=== PATIENT | female | born 1990 | race Caucasian/White ===

== ENCOUNTER 2023-11-14 15:46 | Outpatient (AMB) | payer OTHER, SELFPAY ==
--- NOTE | 2023-11-14 15:55 | MHC.PC.OV ---
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 Required: No Candle Maker: Not Required per policy Accompanied by: Self / Same As Patient Allergies amoxicillin Adverse Reaction (Verified 11/14/23 16:13) Unknown Penicillins Adverse Reaction (Verified 11/14/23 16:13) Unknown Medication List - Last Reconciled 11/14/23 by Severo Lanier PA-C dextroamphetamine-amphetamine 30 mg (Adderall) 30 mg PO DAILY escitalopram oxalate 10 mg PO DAILY Tobacco use date assessed: 11/14/23 Dental Screening Dental Screen Date: 11/14/23 Did you have a dental visit in the last 12 months?: No Did you have a dental problem in the last 6 months where you did not have access to dental care?: No Was dental information given to patient?: Patient has dentist HPI 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 Patient has a past medical history significant for anxiety and ADHD. She reports she was seeing a psychiatrist though has lost her follow-up and would like to regain psychiatry care. She is on Lexapro which has been helpful for her anxiety. She was on Adderall 30 mg for ADHD though apparently has not been on it over the last year and half. She reports she was on several different ADHD medications as a young woman including Ritalin and Concerta though felt they were somewhat ineffective. 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 She does have a 12-year-old daughter. Tobacco dependency: She does understand she needs to quit smoking though at this time due to her stress it is very difficult for her to stop at this time. She does use cigarette smoking as a means to reduce her stress. [facility] Surgical History History of Social History (Updated 11/14/23 @ 16:19 by Severo Lanier PA-C) Housing: House Alcohol intake: current Alcohol intake frequency: a few times a week Patient Tobacco Use Status: Current everyday Tobacco user Cigarette Packs Per Day: 0.5 Substance Use Type: Marijuana Current occupational status: employed Current occupation: [employer] Cognitive needs: No Hearing needs: No Vision needs: No Questionnaire PHQ-9 Over the last 2 weeks, how often have you been bothered by any of the following problems? 1. Little interest or pleasure in doing things: not at all 2. Feeling down, depressed, or hopeless: not at all 3. Trouble falling or staying asleep, or sleeping too much: not at all 4. Feeling tired or having little energy: not at all 5. Poor appetite or overeating: not at all 6. Feeling bad about yourself - or that you are a failure or have let yourself or your family down: not at all 7. Trouble concentrating on things, such as reading the newspaper or watching television: not at all 8. Moving or speaking so slowly that other people could have noticed. Or the opposite - being so fidgety or restless that you have been moving around a lot more than usual: not at all 9. Thoughts that you would be better off or of hurting yourself in some way: not at all Total score: 0 Depression Screening Interpretation: Negative Depression Screening Done: Yes 02881 - PHQ-9 Billing: Yes Source: Developed by Drs. Yasir Mancia, Sanam Joyner, Norm Jason and colleagues, with an educational romulo from [employer]. Thrive Questionnaire Date Thrive assessed: 11/14/23 I am a: Patient What is your living situation today?: I have a steady place to live Within the past 12 months, did the food you bought not last and you didn't have the money to get more?: Never true Within the past 12 months, did you worry whether your food would run out before you got money to buy more?: Never true Do you have trouble paying for medicines?: No Do you have trouble getting transportation to medical appointments?: No Do you have trouble paying your heating and electricity bill?: No Do you have trouble taking care of your child, family member or friend?: No Do you have trouble with day-to-day activities such as bathing, preparing meals, shopping, managing finances, etc.?: No Are you currently unemployed and looking for a job?: No Are you interested in more education?: No Please select the resources that you would like help with: None THRIVE Score: 0 AUDIT C Alcohol Use Questionnaire (AUDIT-C) 1. How often do you have a drink containing alcohol?: Never Total Score: 0 OMAR-7 AMB Questionnaire OMAR-7 Date OMAR - 7 assessed: 11/14/23 Feeling nervous, anxious, or on edge: 3 = Nearly every day Not being able to stop or control worryin = More than half the days Worrying too much about different things: 3 = Nearly every day Trouble relaxin = More than half the days Being so restless that it is hard to sit still: 1 = Several days Becoming easily annoyed or irritable: 1 = Several days Feeling afraid as if something awful might happen: 0 = Not at all Total OMAR-7 score (0-4 normal; 5-9 mild; 10-14 moderate; 15-21 severe): 12 Source: Developed by Drs. Yasir Mancia, Sanam Joyner, Norm Jason and colleagues, with an educational romulo from [employer]. OMAR-7 Assessment Billing OMAR-7 Assessment Tool: OMAR-7 Assessment 63155 Physical exam (Primary Care) Vital Signs: Last Vital Signs Pulse 75 11/14/23 16:01 BP 140/82 H 11/14/23 16:01 Pulse Ox 100 11/14/23 16:01 Oxygen Delivery Method Room Air 11/14/23 16:01 BMI result Body Mass Index 27.0 Tobacco/Smoking Status: Tobacco use Status Tobacco use date assessed 11/14/23 11/14/23 15:57 Patient Tobacco Use Status Current everyday Tobacco 11/14/23 16:19 Are you ready to quit: No Tobacco cessation counseling provided: Yes Items discussed: Nicotine replacement Relapse Prevention: discussed the importance of a supportive environment, discussed negative mood or depression after quitting, weight gain after smoking is common and discussed dietary, exercise and/or lifestyle changes Number of minutes spent counselin CPT code: 61996 - 4-10 Minutes PHQ-9: PHQ-9 Score PHQ-9: Total score 0 11/14/23 16:20 Depression Screening Interpretation: Negative Thrive Assessment: Date of Thrive Assessment Date Thrive assessed 11/14/23 11/14/23 15:57 Assessment and Plan Assessment & Plan (1) ADHD: Code(s): F90.9 - Attention-deficit hyperactivity disorder, unspecified type Qualifiers: Attention deficit-hyperactivity disorder type: predominantly inattentive Qualified Code(s): F90.0 - Attention-deficit hyperactivity disorder, predominantly inattentive type Plan: As per HPI patient has a long history of ADHD disorder. She reports her previous provider was prescribing her Adderall 30 mg which had been effective for her on work days. She was previously on Ritalin and Concerta as a young woman though felt they were ineffective. We did discuss non stimulant non habit-forming ADHD medication and she is somewhat interested in transitioning to 1 of these in near future. (2) OMAR (generalized anxiety disorder): Code(s): F41.1 - Generalized anxiety disorder Plan: Patient's OMAR-7 score positive for anxiety which has been existing condition for her. She is interested in establishing care with a mental health therapist and a psychiatrist. Reports that Lexapro 10 mg is fairly effective on reducing her anxiety as well. (3) Screening for diabetes mellitus (DM): Code(s): Z13.1 - Encounter for screening for diabetes mellitus (4) Elevated blood pressure reading: Code(s): R03.0 - Elevated blood-pressure reading, without diagnosis of hypertension Plan: Noted elevated blood pressure reading today in office. Advised to monitor blood pressure at with goal blood pressure to be below 140/90. We did discuss the possibility of needing blood pressure medications though would like to monitor first. (5) Tobacco dependence: Code(s): F17.200 - Nicotine dependence, unspecified, uncomplicated Plan: Patient does understand she needs to quit smoking. Offered nicotine replacement therapy (6) Fatigue: Code(s): R53.83 - Other fatigue Qualifiers: Fatigue type: unspecified Qualified Code(s): R53.83 - Other fatigue Plan: Reports being somewhat fatigued as of late. She does have history of B12 deficiency per patient. Will recheck B12 and CBC. Orders: Orders Comprehensive [place]. Panel Fast 11/14/23 Z13.1 - Encounter for screening for diabetes mellitus Vitamin B12 and Folate 11/14/23 E53.8 - Deficiency of other specified B group vitamins, R53.83 - Other fatigue Complete Blood Count no Diff 11/14/23 R53.83 - Other fatigue Drug Screen Urine Today F90.0 - Attention-deficit hyperactivity disorder, predominantly inattentive type Ethanol Today F90.0 - Attention-deficit hyperactivity disorder, predominantly inattentive type Referrals Counseling Referral F41.1 - Generalized anxiety disorder Medications: New dextroamphetamine-amphetamine 30 mg (Adderall) 30 mg PO DAILY 28 tabs 0RF 28 days F90.0 - Attention-deficit hyperactivity disorder, predominantly inattentive type escitalopram oxalate 10 mg PO DAILY 90 tabs 1RF 90 days F41.1 - Generalized anxiety disorder dextroamphetamine-amphetamine 30 mg (Adderall) 30 mg PO DAILY 30 days 30 tabs 0RF F90.0 - Attention-deficit hyperactivity disorder, predominantly inattentive type Coding Level of Care Code New Pt Level 4 (08901) Diagnoses Attention deficit hyperactivity disorder (ADHD), predominantly inattentive type F90.0 Attention deficit-hyperactivity disorder type: predominantly inattentive OMAR (generalized anxiety disorder) F41.1 Screening for diabetes mellitus (DM) Z13.1 Elevated blood pressure reading R03.0 Tobacco dependence F17.200 Fatigue, unspecified type R53.83 Fatigue type: unspecified Additional Codes OMAR-7 Assessment Billing - OMAR-7 Assessment Tool: OMAR-7 Assessment [id number] ([id number]) Vital Signs *Quality* - CPT code: 71487 - 4-10 Minutes ([id number])
[2023-11-14 16:01] VITALS: BP 140/82; PULSE 75; O2SAT 100; BMI 27.0
== END 2023-11-14 16:36 | disposition home or self-care (01) ==
PROVIDERS: PCP Physician Assistant; Visit Provider Physician Assistant
DX: F90.0 Attention-deficit hyperactivity disorder, predominantly inattentive type (principal); F41.1 Generalized anxiety disorder; R03.0 Elevated blood-pressure reading, without diagnosis of hypertension; F17.210 Nicotine dependence, cigarettes, uncomplicated; R53.83 Other fatigue
CPT/HCPCS: 99204

== ENCOUNTER 2024-01-14 08:07 | Outpatient (REF) | payer OTHER, SELFPAY ==
[2024-01-14 08:23] LABS: Hematocrit 37.4 % (37.0-47.0); Hemoglobin 13.2 g/dl (12.0-16.0); Mean Corpuscular HGB Conc 35.3 g/dl (31.0-35.0); Mean Corpuscular Hemoglobin 32.8 pg (27.0-33.0); Mean Corpuscular Volume 92.8 fL (80.0-98.0); Mean Platelet Volume 9.5 fL (9.4-12.3); Platelet Count 295 X10*3/uL (160-400); Red Blood Count 4.03 X10*6/uL (4.20-5.50); Red Cell Distribution Width 12.8 % (11.0-16.0); White Blood Count 9.9 X10*3/uL (4.8-10.8)
[2024-01-14 09:01] LABS: Alanine Aminotransferase 59 U/L (0-31); Albumin Level 4.4 g/dL (3.5-5.0); Alkaline Phosphatase 58 U/L (39-117); Anion Gap 18 (12-20); Aspartate Amino Transferase 49 U/L (5-31); Bilirubin Total 0.3 mg/dL (0.0-1.0); Blood Urea Nitrogen 6 mg/dL (9-16); Calcium 10.3 mg/dL (8.4-10.2); Carbon Dioxide 23 mmol/L (22-29); Chloride 101 mmol/L (96-108); Estimated Glomerular Filt Rate > 60; Ethanol < 10 mg/dL; Glucose Fasting 114 mg/dL (60-99); Potassium 4.5 mmol/L (3.3-5.1); Sodium 137 mmol/L (135-145); Total Protein 7.5 g/dL (6.5-8.0)
[2024-01-14 09:17] LABS: Folate 2.8 ng/mL (> or = 4.0); Vitamin B12 353 pg/mL (200-900)
[2024-01-14 09:19] LABS: Amphetamine Screen Urine POSITIVE (Not Detect); Barbiturates, Urine Not Detected (Not Detect); Benzodiazepines Screen Urine Not Detected (Not Detect); Buprenorphine Scr Not Detected (Not Detect); Cannabinoid Screen Urine POSITIVE (Not Detect); Cocaine Screen Urine Not Detected (Not Detect); Fentanyl, urine Not Detected (Not Detect); Methadone Screen, Urine Not Detected (Not Detect); Opiate Screen Urine Not Detected (Not Detect); Oxycodone Screen Urine Not Detected (Not Detect); Phencyclidine Screen Urine Not Detected (Not Detect)
== END 2024-01-14 08:08 | disposition home or self-care (01) ==
LOC: HO.LAB 08:07
PROVIDERS: PCP Physician Assistant; Visit Provider Physician Assistant
DX: Z13.1 Encounter for screening for diabetes mellitus (principal); R53.83 Other fatigue; F90.0 Attention-deficit hyperactivity disorder, predominantly inattentive type; E53.8 Deficiency of other specified B group vitamins
CPT/HCPCS: 80053; 80307; 82607; 82746; 85027

== ENCOUNTER 2024-01-16 14:20 | Outpatient (AMB) | payer OTHER, SELFPAY ==
[2024-01-16 14:50] VITALS: BP 146/82; PULSE 110; O2SAT 99; BMI 26.6
--- NOTE | 2024-01-16 14:50 | A.OFFPC_ITS ---
Vital Signs 01/16/24 14:50 Height 5 ft 5 in Weight 160 lb 2 oz BMI 26.6 BP 146/82 H Blood Pressure Location Lt brachial Position Sitting Pulse 110 H Pulse Source Pulse Oximeter Pulse Oximetry (%) 99 Oxygen Delivery Method Room Air Intake Visit Reasons: Annual exam Intake Note: Patient is here today for a physical. Dope Sprayer Required: No Accompanied by: Self / Same As Patient Allergies amoxicillin Adverse Reaction (Verified 01/16/24 15:14) Unknown Penicillins Adverse Reaction (Verified 01/16/24 15:14) Unknown Medication List - Last Reconciled 01/16/24 by Severo Lanier PA-C dextroamphetamine-amphetamine 30 mg (Adderall) 30 mg PO DAILY 28 days escitalopram oxalate 10 mg PO DAILY 90 days Tobacco use date assessed: 11/14/23 Dental Screening Dental Screen Date: 11/14/23 HPI Annual exam HPI Details Patient is a 33-year-old female here today for a routine annual physical. Patient has a past medical history significant for anxiety and ADHD. ADHD: She reports she was seeing a psychiatrist though has lost her follow-up and would like to regain psychiatry care. She is on Lexapro which has been helpful for her anxiety. She was on Adderall 30 mg for ADHD though apparently has not been on it over the last year and half. She reports she was on several different ADHD medications as a young woman including Ritalin and Concerta though felt they were somewhat ineffective. 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 She does have a 12-year-old daughter. Tobacco dependency: She does understand she needs to quit smoking though at this time due to her stress it is very difficult for her to stop at this time. She does use cigarette smoking as a means to reduce her stress. .. Elevated liver enzymes: Noted elevated liver enzymes on most recent labs. She does report drinking a little bit more alcohol as of late due to stress. We did discuss possibly getting an ultrasound of her liver to evaluate for fatty liver versus cirrhosis though patient would like to hold off and work on lifestyle modifications and recheck liver enzymes. .. Impaired glucose metabolism: Most recent fasting blood sugar elevated at 114. She does admit to dietary indiscretion. PLAN: Will work on dietary and lifestyle modifications. Vaccines:: Up-to-date with COVID vaccine, declines flu, UTD with tdap 2022. Considering PCV Risk Reduction Counselor: Deos see a DIGITAL CAMERA TECHNICIAN ( [place]) Laboratory Tests 01/14/24 01/14/24 08:16 08:26 Creatinine 0.69 Fasting Glucose 114 H AST 49 H ALT 59 H Folate 2.8 L Ur Amphetamines Sc reen POSITIVE H U Marijuana (THC) Screen POSITIVE H PFSH Surgical History History of Family History Mother Hypothyroid Social History Housing: House Alcohol intake: current Alcohol intake frequency: a few times a week Patient Tobacco Use Status: Current everyday Tobacco user Cigarette Packs Per Day: 0.5 Substance Use Type: Marijuana Current occupational status: employed Current occupation: [employer] Cognitive needs: No Hearing needs: No Vision needs: No Questionnaire Thrive Questionnaire Date Thrive assessed: 11/14/23 OMAR-7 AMB Questionnaire OMAR-7 Date OMAR - 7 assessed: 11/14/23 Source: Developed by Drs. Yasir Mancia, Sanam Joyner, Norm Jason and colleagues, with an educational romulo from [employer]. Review of Systems Const Denies body aches, Denies chills, Denies excessive sweating, Denies fatigue, De nies fever(s) and Denies headache(s) Eyes Denies blurry vision ENT Denies dysphagia, Denies vertigo, Denies dizziness, Denies headache(s), Denies hearing loss and Denies tinnitus Card Denies chest pain, Denies chest pain with activity, Denies syncope, Denies irregular heart rhythm and Denies dyspnea Resp Denies chest congestion, Denies cough, Denies hemoptysis, Denies dyspnea and Denies wheezing GI Denies abdominal pain, Denies melena, Denies hematochezia, Denies coffee ground emesis, Denies dysphagia, Denies diarrhea, Denies nausea and Denies vomiting Denies urinary frequency, Denies dysuria, Denies urinary hesitancy and Denies urinary urgency Musc Denies arthralgias, Denies limited range of motion, Denies muscle cramps and Denies muscle weakness Skin/Breast Denies rash and Denies skin ulcer Neuro Denies Abnormal speech present, Denies confusion, Denies vertigo, Denies dizziness, Denies syncope, Denies headache(s), Denies memory loss and Denies seizure-like activity Psych Denies anxiety, Denies confusion, Denies depression, Denies memory loss, Denies panic attacks and Denies paranoia Endo Denies excessive sweating, Denies fatigue, Denies flushing, Denies polydipsia and Denies polyuria Aller/Immun Denies wheezing Physical exam (Primary Care) Vital Signs: Last Vital Signs Pulse 110 H 01/16/24 14:50 BP 146/82 H 01/16/24 14:50 Pulse Ox 99 01/16/24 14:50 Oxygen Delivery Method Room Air 01/16/24 14:50 BMI result Body Mass Index 26.6 Tobacco/Smoking Status: Tobacco use Status Tobacco use date assessed 11/14/23 01/16/24 14:50 Patient Tobacco Use Status Current everyday Tobacco 01/16/24 15:19 Are you ready to quit: No Tobacco cessation counseling provided: Yes Items discussed: Nicotine replacement and [employer] Relapse Prevention: discussed the importance of a supportive environment, discussed negative mood or depression after quitting, weight gain after smoking is common and discussed dietary, exercise and/or lifestyle changes Number of minutes spent counselin CPT code: 46465 - 4-10 Minutes Thrive Assessment: Date of Thrive Assessment Date Thrive assessed 11/14/23 01/16/24 14:50 Const General: cooperative, comfortable, no acute distress, alert and awake; No confusion Orientation/consciousness: oriented to person, oriented to place, patient oriented x3 and No confusion HENMT Head: Yes normocephalic Ears: external ears normal and TM's normal bilaterally Face and sinus: No sinus tenderness Mouth: Normal oral and palatal mucosa present and tongue normal Teeth and gingiva: dentition normal and gingiva normal Throat: Yes posterior oropharynx normal, Yes tonsils normal and Yes uvula midline Eyes Conjunctivae: conjunctivae normal Sclerae: sclerae normal Pupils: Equal, round and reactive pupils present EOM: EOMs intact bilaterally Direct Ophthalmoscopy: No no photophobia Neck Neck: Yes no lymphadenopathy, No tender and Yes no JVD Thyroid: Thyroid normal Carotids: no bruits Chest Chest palpation & inspection: no tenderness Resp Effort & Inspection: normal respiratory effort, no audible wheezes, not labored and no stridor Auscultation: no crackles, no rales, no rhonchi and no wheezes Cardio Jugular venous distension: no JVD Rate: regular rate, not bradycardic and not tachycardic Rhythm: regular rhythm Bruits: no carotid bruits Peripheral pulses: Peripheral pulses 2+ throughout GI Inspection: Yes normal to inspection, No abdominal wall ecchymosis and No visible herniation Palpation (GI): Soft to palpation, nontender, no guarding, not rigid and No hepatosplenomegaly present Auscultation: normoactive bowel sounds General: Yes no CVA tenderness Back/Spine/Pelvis Back: no CVA tenderness and No back tenderness Cervical Spine: cervical ROM normal Thoracic/Lumbar Spine: thoracic and lumbar spine normal to inspection, straight leg raise negative bilaterally, No thoraco-lumbar ROM limited and No lumbar spinal tenderness Skin Lesions: no lesions Rashes: no rashes Wounds: no wounds Neuro General: oriented to person, oriented to place, patient oriented x3, CN's II-XI intact bilaterally and No confusion Cranial nerves: Yes Equal, round and reactive pupils present and Yes Normal accommodation reflex present Cognition (Neuro): normal cognition Speech: No Abnormal speech present Gait exam (Neuro): Normal gait present Motor exam (neuro): 5/5 motor strength present throughout Extrem Right upper extremity: full ROM; no cyanosis Left upper extremity: full ROM; no cyanosis Right lower extremity: no edema Left lower extremity: no edema Psych Appearance: grossly normal Mental Status: mental status grossly normal Affect: normal affect Attitude: cooperative Thought process: Normal thought process present Assessment and Plan Assessment & Plan (1) Annual physical exam: Code(s): Z00.00 - Encounter for general adult medical examination without abnormal find ings (2) ADHD: Code(s): F90.9 - Attention-deficit hyperactivity disorder, unspecified type Qualifiers: Attention deficit-hyperactivity disorder type: predominantly inattentive Qualified Code(s): F90.0 - Attention-deficit hyperactivity disorder, predominantly inattentive type Plan: As per HPI patient has a long history of ADHD disorder. She reports her previous provider was prescribing her Adderall 30 mg which had been effective for her on work days. 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 She was previously on Ritalin and Concerta as a young woman though felt they were ineffective. We did discuss non stimulant non habit-forming ADHD medication and she is somewhat interested in transitioning to 1 of these in near future. (3) Elevated blood pressure reading: Code(s): R03.0 - Elevated blood-pressure reading, without diagnosis of hypertension Plan: Noted elevated blood pressure reading today in office. Advised to monitor blood pressure at with goal blood pressure to be below 140/90. We did discuss the possibility of needing blood pressure medications though would like to monitor first. (4) Tobacco dependence: Code(s): F17.200 - Nicotine dependence, unspecified, uncomplicated Plan: Patient does understand she needs to quit smoking. Offered nicotine replacement therapy though she declines at this time. Still is using cigarettes as a stress reliever. (5) Fatigue: Code(s): R53.83 - Other fatigue Qualifiers: Fatigue type: unspecified Qualified Code(s): R53.83 - Other fatigue Plan: Noted to have a folate deficiency. Will start folic acid supplementation. (6) Allergic arthritis: Code(s): M13.80 - Other specified arthritis, unspecified site Plan: Has been suffering with allergy type symptoms. Will supply patient with an antihistamine to use on a daily basis during allergy seasons. (7) Elevated liver enzymes: Code(s): R74.8 - Abnormal levels of other serum enzymes Plan: Noted elevated liver enzymes most recent labs. We did discuss possibly getting a ultrasound of liver to evaluate for fatty liver. She does admit to increase in alcohol intake as of late due to stress. She will work on lifestyle and dietary modifications (8) Folate deficiency: Code(s): E53.8 - Deficiency of other specified B group vitamins Plan: Noted a folate deficiency on most recent labs. Will start folic acid replacement. (9) Impaired glucose metabolism: Code(s): R73.09 - Other abnormal glucose Plan: Noted most recent fasting blood sugar 114. She does understand this may be considered in a prediabetic range. She work will work on dietary modifications. Goal fasting blood sugar to be below 100 Orders: Orders Vitamin B12 and Folate 01/16/24 E53.8 - Deficiency of other specified B group vitamins Hemoglobin A1c 01/16/24 R73.09 - Other abnormal glucose Comprehensive [facility]. Panel Fast 01/16/24 R73.09 - Other abnormal glucose Liver Panel 01/16/24 R74.8 - Abnormal levels of other serum enzymes Referrals Counseling Referral F41.1 - Generalized anxiety disorder Medications: New loratadine (Allergy Relief (loratadine)) 10 mg PO DAILY 30 tabs 3RF 30 days M13.80 - Other specified arthritis, unspecified site fluticasone propionate 50 mcg/actuation (Flonase Allergy Relief) administer into each nostril 1 spray intranasal BID 16 grams 3RF 30 days M13.80 - Other specified arthritis, unspecified site folic acid 1 mg PO DAILY 90 tabs 1RF 90 days E53.8 - Deficiency of other specified B group vitamins Refilled dextroamphetamine-amphetamine 30 mg (Adderall) 30 mg PO DAILY 28 tabs 0RF 28 days F90.0 - Attention-deficit hyperactivity disorder, predominantly inattentive type escitalopram oxalate 10 mg PO DAILY 90 tabs 1RF 90 days F41.1 - Generalized anxiety disorder Patient Instructions: Goal: Fasting blood sugar to be below 100 Barriers: Adherence to healthy eating habits and physical activity Coding Level of Care Code Est Pt Prev Care 18-39y(21247) Diagnoses Annual physical exam Z00.00 Attention deficit hyperactivity disorder (ADHD), predominantly inattentive type F90.0 Attention deficit-hyperactivity disorder type: predominantly inattentive Elevated blood pressure reading R03.0 Tobacco dependence F17.200 Fatigue, unspecified type R53.83 Fatigue type: unspecified Allergic arthritis M13.80 Elevated liver enzymes R74.8 Folate deficiency E53.8 Impaired glucose metabolism R73.09 Additional Codes Vital Signs *Quality* - CPT code: 22636 - 4-10 Minutes ([id number])
== END 2024-01-16 15:42 | disposition home or self-care (01) ==
PROVIDERS: PCP Physician Assistant; Visit Provider Physician Assistant
DX: Z00.00 Encounter for general adult medical examination without abnormal findings (principal); F90.0 Attention-deficit hyperactivity disorder, predominantly inattentive type; R03.0 Elevated blood-pressure reading, without diagnosis of hypertension; F17.200 Nicotine dependence, unspecified, uncomplicated; R53.83 Other fatigue; M13.80 Other specified arthritis, unspecified site; R74.8 Abnormal levels of other serum enzymes; E53.8 Deficiency of other specified B group vitamins; R73.09 Other abnormal glucose
CPT/HCPCS: 99395; 99406

== ENCOUNTER 2024-07-24 13:48 | Outpatient (AMB) | payer OTHER, SELFPAY ==
--- NOTE | 2024-07-24 13:56 | MHC.PC.OV ---
Vital Signs 07/24/24 13:57 Height 5 ft 5 in Weight 158 lb 6 oz BMI 26.4 BP 144/98 H Blood Pressure Location Lt brachial Position Sitting Pulse 106 H Pulse Source Pulse Oximeter Pulse Oximetry (%) 99 Oxygen Delivery Method Room Air Intake Visit Reasons: f/u Labs (liver / folate) Allergies amoxicillin Adverse Reaction (Verified 07/24/24 14:00) Unknown Penicillins Adverse Reaction (Verified 07/24/24 14:00) Unknown Medication List - Last Reconciled 07/24/24 by Severo Lanier PA-C dextroamphetamine-amphetamine 30 mg (Adderall) 30 mg PO DAILY 28 days escitalopram oxalate 10 mg PO DAILY 90 days fluticasone propionate 50 mcg/actuation (Flonase Allergy Relief) 1 spray intranasal BID 30 days folic acid 1 mg PO DAILY 90 days loratadine (Allergy Relief (loratadine)) 10 mg PO DAILY 30 days Tobacco use date assessed: 11/14/23 Dental Screening Dental Screen Date: 11/14/23 HPI f/u Labs (liver / folate) HPI Details Patient is a 33-year-old female here today for a follow-up visit. Patient has a past medical history significant for anxiety and ADHD. ADHD: She reports she was seeing a psychiatrist though has lost her follow-up and would like to regain psychiatry care. She is on Lexapro which has been helpful for her anxiety. She was on Adderall 30 mg for ADHD though apparently has not been on it over the last year and half. She reports she was on several different ADHD medications as a young woman including Ritalin and Concerta though felt they were somewhat ineffective. 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 She does have a 12-year-old daughter. Concern--> patient presenting with persistent watery eyes, primarily related to allergic conjunctivitis, which has worsened this season. She has been experiencing this on and off for a long time. Despite using loratadine occasionally, symptoms persist, possibly exacerbated by prolonged screen time due to work-related changes. Tobacco dependency: She does understand she needs to quit smoking though at this time due to her stress it is very difficult for her to stop at this time. She does use cigarette smoking as a means to reduce her stress. .. Elevated liver enzymes: Noted elevated liver enzymes on most recent labs. She does report drinking a little bit more alcohol as of late due to stress. We did discuss possibly getting an ultrasound of her liver to evaluate for fatty liver versus cirrhosis though patient would like to hold off and work on lifestyle modifications and recheck liver enzymes. .. Impaired glucose metabolism: Most recent fasting blood sugar elevated at 114. She does admit to dietary indiscretion. PLAN: Will check an A1c Laboratory Tests 01/14/24 01/14/24 08:16 08:26 AST 49 H ALT 59 H Folate 2.8 L Ur Amphetamines Sc reen POSITIVE H U Marijuana (THC) Screen POSITIVE H PFSH Surgical History History of Family History Mother Hypothyroid Social History Housing: House Alcohol intake: current Alcohol intake frequency: a few times a week Patient Tobacco Use Status: Current everyday Tobacco user Cigarette Packs Per Day: 0.5 Substance Use Type: Marijuana Current occupational status: employed Current occupation: [employer] Cognitive needs: No Hearing needs: No Vision needs: No Questionnaire Thrive Questionnaire Date Thrive assessed: 11/14/23 OMAR-7 AMB Questionnaire OMAR-7 Date OMAR - 7 assessed: 11/14/23 Source: Developed by Drs. Yasir Mancia, Sanam Joyner, Norm Jason and colleagues, with an educational romulo from [employer]. Review of Systems Const Denies headache(s) Eyes Denies loss of vision ENT Denies vertigo, Denies dizziness, Denies headache(s) and Denies sore throat Card Denies chest pain, Denies leg edema and Denies lightheadedness Resp Denies cough, Denies hemoptysis and Denies wheezing GI Denies abdominal pain, Denies melena, Denies constipation, Denies diarrhea and Denies vomiting Denies urinary frequency, Denies dysuria and Denies urinary urgency Musc Denies arthralgias, Denies joint swelling, Denies numbness and Denies tingling Neuro Denies Abnormal speech present, Denies behavioral changes, Denies vertigo, Denies dizziness, Denies headache(s), Denies loss of vision, Denies memory loss, Denies numbness and Denies tingling Psych Denies anxiety, Denies behavioral changes, Denies depression, Denies memory loss and Denies panic attacks Rell/Lymph Denies easy bleeding and Denies easy bruising Aller/Immun Denies wheezing Physical exam (Primary Care) Vital Signs: Last Vital Signs Pulse 106 H 07/24/24 13:57 BP 144/98 H 07/24/24 13:57 Pulse Ox 99 07/24/24 13:57 Oxygen Delivery Method Room Air 07/24/24 13:57 BMI result Body Mass Index 26.4 Tobacco/Smoking Status: Tobacco use Status Tobacco use date assessed 11/14/23 07/24/24 13:57 Patient Tobacco Use Status Current everyday Tobacco 07/24/24 13:57 Thrive Assessment: Date of Thrive Assessment Date Thrive assessed 11/14/23 07/24/24 13:57 Const General: healthy appearing, no acute distress, alert and awake Nutritional Appearance: well nourished Orientation/consciousness: oriented to person, oriented to place and oriented to time HENMT Ears: TM's normal bilaterally General nose exam: Normal nasal mucous membranes and turbinates present Eyes Conjunctivae: conjunctivae normal Sclerae: sclerae normal Pupils: Equal, round and reactive pupils present Neck Neck: Yes no lymphadenopathy and Yes no JVD Thyroid: Thyroid normal Carotids: no bruits Resp Effort & Inspection: normal respiratory effort and not tachypneic Auscultation: no crackles, no rales, no rhonchi and no wheezes Cardio Rate: regular rate Rhythm: regular rhythm Heart sounds: no murmurs and normal S1 and S2 GI Palpation (GI): Soft to palpation, nontender, no hepatomegaly and no splenomegaly Auscultation: normal bowel sounds Skin General skin exam: no rashes or lesions noted and dry skin Neuro General: oriented to person, oriented to place and oriented to time Cranial nerves: Yes Equal, round and reactive pupils present Speech: No Abnormal speech present Gait exam (Neuro): Normal gait present Motor exam (neuro): no tremor noted Extrem Right upper extremity: full ROM Left upper extremity: full ROM Right lower extremity: full ROM; no edema Left lower extremity: full ROM; no edema Psych Mental Status: mental status grossly normal Speech and movement: Normal speech and movement present Affect: normal affect Attitude: cooperative Thought process: Normal thought process present Office Procedures Flu Questionnaire Does the patient have a severe egg allergy?: No Immunizations Fluarix Triv [id number] (PF) 45 mcg (15 mcg x 3)/0.5 mL IM syringe Performing Provider: Severo Lanier PA-C [facility] Documented (not given) by: ARIAN Messer on 07/24/24 13:58 Reason Not Given: Patient Refused Coding Level of Care Code Est Pt Level 4 (30082) Diagnoses Attention deficit hyperactivity disorder (ADHD), predominantly inattentive type F90.0 Attention deficit-hyperactivity disorder type: predominantly inattentive Impaired glucose metabolism R73.09 Folate deficiency E53.8 Tobacco dependence F17.200 Allergic conjunctivitis of both eyes H10.13 Laterality: bilateral Assessment & Plan Assessment & Plan (1) ADHD: Code(s): F90.9 - Attention-deficit hyperactivity disorder, unspecified type Category: Medical Qualifiers: Attention deficit-hyperactivity disorder type: predominantly inattentive Qualified Code(s): F90.0 - Attention-deficit hyperactivity disorder, predominantly inattentive type Plan: Patient seems to have been doing well on current dose of stimulant ADHD medication. She continues with a full-time job . She denies any side effects from stimulant ADHD med. Will continue to follow every 3 months to evaluate the effectiveness of the medication. (2) Impaired glucose metabolism: Code(s): R73.09 - Other abnormal glucose Category: Medical Plan: Patient's most recent fasting blood sugar slightly elevated. She has been trying to work on lifestyle and dietary modifications. Will recheck fasting blood sugar and A1c. (3) Folate deficiency: Code(s): E53.8 - Deficiency of other specified B group vitamins Category: Medical Plan: Will continue folate supplementation. (4) Tobacco dependence: Code(s): F17.200 - Nicotine dependence, unspecified, uncomplicated Category: Medical Plan: Patient does understand she needs to quit smoking. She would like to try nicotine gum. (5) Allergic conjunctivitis: Code(s): H10.10 - Acute atopic conjunctivitis, unspecified eye Category: Medical Qualifiers: Laterality: bilateral Qualified Code(s): H10.13 - Acute atopic conjunctivitis, bilateral Plan: Use [id number] antihistamine or vasoconstrictant eye drops for allergy-related eye symptoms Orders: Orders Influenza [id number] Immunization 07/24/24 Z23 - Encounter for immunization Medications: New nicotine (polacrilex) 2 mg buccal Q2H PRN 110 ea 0RF nicotine cravings 15 days F17.200 - Nicotine dependence, unspecified, uncomplicated Refilled folic acid 1 mg PO DAILY 90 tabs 1RF 90 days E53.8 - Deficiency of other specified B group vitamins
[2024-07-24 13:57] VITALS: BP 144/98; PULSE 106; O2SAT 99; BMI 26.4
== END 2024-07-24 14:19 | disposition home or self-care (01) ==
PROVIDERS: PCP Physician Assistant; Visit Provider Physician Assistant
DX: F90.0 Attention-deficit hyperactivity disorder, predominantly inattentive type (principal); R73.09 Other abnormal glucose; E53.8 Deficiency of other specified B group vitamins; F17.200 Nicotine dependence, unspecified, uncomplicated; H10.13 Acute atopic conjunctivitis, bilateral

== ENCOUNTER → 2024-07-24 13:48 | Outpatient (BNVA) | payer OTHER, SELFPAY | PROVIDERS: PCP Physician Assistant; Visit Provider Physician Assistant | DX: F90.0 Attention-deficit hyperactivity disorder, predominantly inattentive type (principal); R73.09 Other abnormal glucose; E53.8 Deficiency of other specified B group vitamins; F17.200 Nicotine dependence, unspecified, uncomplicated; H10.13 Acute atopic conjunctivitis, bilateral; Z28.21 Immunization not carried out because of patient refusal | CPT/HCPCS: 90471 ==

== ENCOUNTER 2024-11-27 13:30 | Outpatient (AMB) | payer OTHER, SELFPAY ==
[2024-11-27 13:55] VITALS: BP 150/94; PULSE 104; O2SAT 97; BMI 26.5
--- NOTE | 2024-11-27 13:55 | A.OFFPC_ITS ---
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 Accompanied by: Self / Same As Patient Allergies amoxicillin Adverse Reaction (Verified 11/27/24 14:12) Unknown Penicillins Adverse Reaction (Verified 11/27/24 14:12) Unknown Medication List - Last Reconciled 11/27/24 by Severo Lanier PA-C dextroamphetamine-amphetamine 30 mg (Adderall) 30 mg PO DAILY 28 days escitalopram oxalate 10 mg PO DAILY 90 days fluticasone propionate 50 mcg/actuation (Flonase Allergy Relief) 1 spray intranasal BID 30 days folic acid 1 mg PO DAILY 90 days loratadine (Allergy Relief (loratadine)) 10 mg PO DAILY 30 days nicotine (polacrilex) 2 mg buccal Q2H PRN 15 days Tobacco use date assessed: 11/27/24 Dental Screening Dental Screen Date: 11/27/24 Did you have a dental visit in the last 12 months?: Yes Did you have a dental problem in the last 6 months where you did not have access to dental care?: No Was dental information given to patient?: Patient has dentist HPI f/u ADHD/ blood pressure chesck HPI Details Patient is a 34-year-old female here today for a follow-up visit. Patient has a past medical history significant for anxiety and ADHD. Concern--> reports getting cystic masses in her groin and axillary region. She was told she had hidradenitis in the past. She would like to try a topical treatment when cysts present. ADHD: She reports she was seeing a psychiatrist though has lost her follow-up an d would like to regain psychiatry care. She is on Lexapro which has been helpful for her anxiety. She was on Adderall 30 mg for ADHD though apparently has not been on it over the last year and half. She reports she was on several different ADHD medications as a young woman including Ritalin and Concerta though felt they were somewhat ineffective. 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 She does have a 12-year-old daughter. Tobacco dependency: She does understand she needs to quit smoking though at this time due to her stress it is very difficult for her to stop at this time. She does use cigarette smoking as a means to reduce her stress. /.. Hypertension: consistent elevated blood pressure. Despite the initiation of an exercise regimen and attempts to modify diet by reducing salt intake, blood pressure readings have not dropped below 140/90 mmHg. Past blood pressure readings were stable, with slight elevations only noted during her recent ; no previous hypertensive diagnosis was recorded. She's also dealing with stress at work, compounded by smoking and caffeine consumption, which might contribute to the blood pressure issue. .. Elevated liver enzymes: Noted elevated liver enzymes on most recent labs. She does report drinking a little bit more alcohol as of late due to stress. We did discuss possibly getting an ultrasound of her liver to evaluate for fatty liver versus cirrhosis though patient would like to hold off and work on lifestyle modifications and recheck liver enzymes. .. Impaired glucose metabolism: Most recent fasting blood sugar elevated at 114. She does admit to dietary indiscretion. PLAN: Will check an A1c upon next lab draw [facility] Surgical History History of Family History Mother Hypothyroid Social History Housing: House Alcohol intake: current Alcohol intake frequency: a few times a week Patient Tobacco Use Status: Current everyday Tobacco user Cigarette Packs Per Day: 0.5 e-Cigarette/Vaping Use: Never Used Substance Use Type: Marijuana service: No Current occupational status: employed Current occupation: [employer] Cognitive needs: No Hearing needs: No Vision needs: No Questionnaire PHQ-9 Over the last 2 weeks, how often have you been bothered by any of the following problems? 1. Little interest or pleasure in doing things: not at all 2. Feeling down, depressed, or hopeless: not at all 3. Trouble falling or staying asleep, or sleeping too much: not at all 4. Feeling tired or having little energy: not at all 5. Poor appetite or overeating: not at all 6. Feeling bad about yourself - or that you are a failure or have let yourself or your family down: not at all 7. Trouble concentrating on things, such as reading the newspaper or watching television: not at all 8. Moving or speaking so slowly that other people could have noticed. Or the opposite - being so fidgety or restless that you have been moving around a lot more than usual: not at all 9. Thoughts that you would be better off or of hurting yourself in some way: not at all Total score: 0 Depression Screening Interpretation: Negative Depression Screening Done: Yes 47913 - PHQ-9 Billing: Yes Source: Developed by Drs. Yasir Mancia, Sanam Joyner, Norm Jason and colleagues, with an educational romulo from [employer]. Thrive Questionnaire Date Thrive assessed: 11/27/24 I am a: Patient What is your living situation today?: I have a steady place to live Within the past 12 months, did the food you bought not last and you didn't have the money to get more?: Never true Within the past 12 months, did you worry whether your food would run out before you got money to buy more?: Never true Do you have trouble paying for medicines?: No Do you have trouble getting transportation to medical appointments?: No Do you have trouble paying your heating and electricity bill?: No Do you have trouble taking care of your child, family member or friend?: No Do you have trouble with day-to-day activities such as bathing, preparing meals, shopping, managing finances, etc.?: No Are you currently unemployed and looking for a job?: No Are you interested in more education?: No Please select the resources that you would like help with: None Currently or been in a relationship where the following occur: No concerns reported THRIVE Score: 0 AUDIT C Alcohol Use Questionnaire (AUDIT-C) 1. How often do you have a drink containing alcohol?: Never 3. How often do you have six or more drinks on one occasion?: Never Total Score: 0 OMAR-7 AMB Questionnaire OMAR-7 Date OMAR - 7 assessed: 11/14/23 Source: Developed by Drs. Yasir Mancia, Norm Garcia and colleagues, with an educational romulo from [employer]. Review of Systems Const Denies headache(s) Eyes Denies loss of vision ENT Denies vertigo, Denies dizziness, Denies headache(s) and Denies sore throat Card Denies chest pain, Denies leg edema and Denies lightheadedness Resp Denies cough, Denies hemoptysis and Denies wheezing GI Denies abdominal pain, Denies melena, Denies constipation, Denies diarrhea and Denies vomiting Denies urinary frequency, Denies dysuria and Denies urinary urgency Musc Denies arthralgias, Denies joint swelling, Denies numbness and Denies tingling Neuro Denies Abnormal speech present, Denies behavioral changes, Denies vertigo, Denies dizziness, Denies headache(s), Denies loss of vision, Denies memory loss, Denies numbness and Denies tingling Psych Denies anxiety, Denies behavioral changes, Denies depression, Denies memory loss and Denies panic attacks Rell/Lymph Denies easy bleeding and Denies easy bruising Aller/Immun Denies wheezing Physical exam (Primary Care) Vital Signs: Last Vital Signs Pulse 104 H 11/27/24 13:55 BP 150/94 H 11/27/24 13:55 Pulse Ox 97 11/27/24 13:55 Oxygen Delivery Method Room Air 11/27/24 13:55 BMI result Body Mass Index 26.5 Tobacco/Smoking Status: Tobacco use Status Tobacco use date assessed 11/27/24 11/27/24 14:07 Patient Tobacco Use Status Current everyday Tobacco 11/27/24 13:55 e-Cigarette/Vaping Use Never Used 11/27/24 14:07 Are you ready to quit: No Tobacco cessation counseling provided: Yes Items discussed: Nicotine replacement Relapse Prevention: discussed the importance of a supportive environment, discussed negative mood or depression after quitting, weight gain after smoking is common and discussed dietary, exercise and/or lifestyle changes Number of minutes spent counselin CPT code: 12470 - 4-10 Minutes PHQ-9: PHQ-9 Score PHQ-9: Total score 0 11/27/24 14:08 Depression Screening Interpretation: Negative Thrive Assessment: Date of Thrive Assessment Date Thrive assessed 11/27/24 11/27/24 14:07 Currently or been in a relationship where the following occur: No concerns reported Const General: healthy appearing, no acute distress, alert and awake Nutritional Appearance: well nourished Orientation/consciousness: oriented to person, oriented to place and oriented to time HENMT Ears: TM's normal bilaterally General nose exam: Normal nasal mucous membranes and turbinates present Eyes Conjunctivae: conjunctivae normal Sclerae: sclerae normal Pupils: Equal, round and reactive pupils present Neck Neck: Yes no lymphadenopathy and Yes no JVD Thyroid: Thyroid normal Carotids: no bruits Resp Effort & Inspection: normal respiratory effort and not tachypneic Auscultation: no crackles, no rales, no rhonchi and no wheezes Cardio Rate: regular rate Rhythm: regular rhythm Heart sounds: no murmurs and normal S1 and S2 GI Palpation (GI): Soft to palpation, nontender, no hepatomegaly and no splenomegaly Auscultation: normal bowel sounds Skin General skin exam: no rashes or lesions noted and dry skin Neuro General: oriented to person, oriented to place and oriented to time Cranial nerves: Yes Equal, round and reactive pupils present Speech: No Abnormal speech present Gait exam (Neuro): Normal gait present Motor exam (neuro): no tremor noted Extrem Right upper extremity: full ROM Left upper extremity: full ROM Right lower extremity: full ROM; no edema Left lower extremity: full ROM; no edema Psych Mental Status: mental status grossly normal Speech and movement: Normal speech and movement present Affect: normal affect Attitude: cooperative Thought process: Normal thought process present Results AMB Hemoglobin A1c AMB Hemoglobin A1c 4.8 % Last Edit by ARIAN Messer on 11/27/24 14:14 Coding Level of Care Code Est Pt Level 4 (45149) Diagnoses Primary hypertension I10 Hypertension type: primary hypertension Attention deficit hyperactivity disorder (ADHD), predominantly inattentive type F90.0 Attention deficit-hyperactivity disorder type: predominantly inattentive Impaired glucose metabolism R73.09 Tobacco dependence F17.200 Hydradenitis L73.2 Additional Codes PHQ-9 - 21252 - PHQ-9 Billing: Yes ([id number]) Vital Signs *Quality* - CPT code: 10825 - 4-10 Minutes ([id number]) Assessment & Plan Assessment & Plan (1) HTN (hypertension): Code(s): I10 - Essential (primary) hypertension Category: Medical Qualifiers: Hypertension type: primary hypertension Qualified Code(s): I10 - Essential (primary) hypertension Plan: Patient's blood pressure remains elevated. She is willing to start on lisinopril 10 mg for better blood pressure control. Goal blood pressures to remain below 140/90 (2) ADHD: Code(s): F90.9 - Attention-deficit hyperactivity disorder, unspecified type Category: Medical Qualifiers: Attention deficit-hyperactivity disorder type: predominantly inattentive Qualified Code(s): F90.0 - Attention-deficit hyperactivity disorder, predominantly inattentive type Plan: Patient seems to have been doing well on current dose of stimulant ADHD medication. She continues with a full-time job . She denies any side effects from stimulant ADHD med. Will continue to follow every 3 months to evaluate the effectiveness of the medication. (3) Impaired glucose metabolism: Code(s): R73.09 - Other abnormal glucose Category: Medical Plan: Patient's most recent fasting blood sugar slightly elevated. She has been trying to work on lifestyle and dietary modifications. Will recheck fasting blood sugar and A1c. (4) Tobacco dependence: Code(s): F17.200 - Nicotine dependence, unspecified, uncomplicated Category: Medical Plan: Patient does understand she needs to quit smoking. (5) Hydradenitis: Code(s): L73.2 - Hidradenitis suppurativa Category: Medical Plan: Bactroban cream prescribed for recurrent nodules. Focus on managing skin impacts with hygiene and skin care, with the medication sent to [facility]. Orders: Orders AMB Hemoglobin A1c Today Z13.1 - Encounter for screening for diabetes mellitus Microalbumin, Random (w Creat) Today I10 - Essential (primary) hypertension Medications: New lisinopril 10 mg PO DAILY 30 days 30 tabs 3RF I10 - Essential (primary) hypertension blood pressure monitor As directed 1 ea 0RF I10 - Essential (primary) hypertension mupirocin calcium 2% 1 appl topical BID 30 days 30 grams 1RF L73.2 - Hidradenitis suppurativa Refilled folic acid 1 mg PO DAILY 90 days 90 tabs 1RF E53.8 - Deficiency of other specified B group vitamins escitalopram oxalate 10 mg PO DAILY 90 days 90 tabs 1RF F41.1 - Generalized anxiety disorder dextroamphetamine-amphetamine 30 mg (Adderall) 30 mg PO DAILY 28 days 28 tabs 0RF F90.0 - Attention-deficit hyperactivity disorder, predominantly inattentive type
== END 2024-11-27 15:36 | disposition home or self-care (01) ==
LOC: HO.HMCH 13:30
PROVIDERS: PCP Physician Assistant; Visit Provider Physician Assistant
DX: I10 Essential (primary) hypertension (principal); F90.0 Attention-deficit hyperactivity disorder, predominantly inattentive type; R73.09 Other abnormal glucose; F17.200 Nicotine dependence, unspecified, uncomplicated; L73.2 Hidradenitis suppurativa; Z13.1 Encounter for screening for diabetes mellitus

== ENCOUNTER → 2024-11-27 13:30 | Outpatient (BNVA) | payer OTHER, SELFPAY | PROVIDERS: PCP Physician Assistant; Visit Provider Physician Assistant | DX: I10 Essential (primary) hypertension (principal); F90.0 Attention-deficit hyperactivity disorder, predominantly inattentive type; R73.09 Other abnormal glucose; L73.2 Hidradenitis suppurativa; F17.210 Nicotine dependence, cigarettes, uncomplicated | CPT/HCPCS: 83036; 96127 ==

== ENCOUNTER 2025-03-11 11:26 | Outpatient (AMB) | payer OTHER, SELFPAY ==
--- NOTE | 2025-03-11 12:11 | AM.OFFWIN_ITS ---
Intake Vital Signs 03/11/25 12:12 Height 5 ft 5 in Weight 157 lb 8 oz BMI 26.2 BP 132/66 Blood Pressure Location Rt brachial Position Sitting Pulse 88 Pulse Source Pulse Oximeter Temp 98.9 F Temp Source Oral Pulse Oximetry (%) 100 Oxygen Delivery Method Room Air Intake Visit Reasons: EP Sinus infection? Intake Note: presents with ear pain, sinus pressure/congestion/pain, headache, laryngitis x5 days Patient Tobacco Use Status: Current everyday Tobacco user Allergies amoxicillin Adverse Reaction (Verified 03/11/25 12:14) Unknown Penicillins Adverse Reaction (Verified 03/11/25 12:14) Unknown Do you need a note to return to daycare/school/sports/work: Yes Return to daycare/school/sports/work/other note: work HPI HPI Comments History of Present Illness Details History of Present Illness - The patient is a 34-year-old female pr esenting with ear pain and nasal congestion. - Symptoms began with ear discomfort on Sunday, followed by nasal congestion and green mucus production starting Sunday or Sunday. - No fever or cough reported, but a mild sore throat is present. - Zsyd-ler-bkmdboq medications such as S udafed, DayQuil, NyQuil, and ibuprofen have been used with limited relief. - The patient is a smoker, having smoked two cigarettes in the past two days. - Ear examination by a colleague at work indicated redness in the right ear. - The patient reports significant nasal congestion, using an entire box of tissues on Sunday. - She has facial pressure and pain in liliana th ears. - She denies fever, chills, chest pain, SOB, abd pain, n/v/d, dizziness, or sick contacts. Physical Exam General: Cooperative, healthy appearing, comfortable, no acute distress and well developed Head: Normal to inspection Ears: Hearing grossly normal bilaterally. No tragus or mastoid tenderness noted. Auditory canals clear bilaterally. TM's normal, not bulging. No fluid noted. Nose: Normal external nose present. Moist mucosa. Turbinates normal bilaterally, not boggy. Face and sinus: Tenderness to palpation of the frontal and maxillary sinuses bilaterally. Neck: Normal visual inspection and full ROM. No lymphadenopathy noted. Respiratory: Normal respiratory effort and able to speak in complete sentences. Clear to auscultation bilaterally Cardiovascular: Regular rate and rhythm. Normal S1 and S2. No m/r/g noted. Skin: No rashes or lesions noted PFSH Surgical History History of Family History Mother Hypothyroid Social History Housing: House Alcohol intake: current Alcohol intake frequency: a few times a week Patient Tobacco Use Status: Current everyday Tobacco user Cigarette Packs Per Day: 0.5 e-Cigarette/Vaping Use: Never Used Substance Use Type: Marijuana service: No Current occupational status: employed Current occupation: [employer] Manager Cognitive needs: No Hearing needs: No Vision needs: No Review of Systems Const All systems reviewed & are unremarkable except as noted in HPI and below Physical Exam Vital Signs: Last Vital Signs Temp 98.9 F 03/11/25 12:12 Pulse 88 03/11/25 12:12 BP 132/66 03/11/25 12:12 Pulse Ox 100 03/11/25 12:12 Oxygen Delivery Method Room Air 03/11/25 12:12 BMI result Body Mass Index 26.2 Assessment & Plan Assessment & Plan (1) Sinusitis: Code(s): J32.9 - Chronic sinusitis, unspecified Qualifiers: Sinusitis location: unspecified location Chronicity: acute Recurrence: non-recurrent Qualified Code(s): J01.90 - Acute sinusitis, unspecified Plan Most likely sinusitis vs URI vs covid vs flu Plan - steam showers - tylenol or motrin as needed - augmentin BID for 7 days - Flonase daily - zyrtec D daily - work note given - follow up as needed Medications: New cetirizine-pseudoephedrine 5-120 mg ER 1 tab PO BID 14 tabs 0RF 7 days doxycycline hyclate 100 mg PO BID 14 tabs 0RF 7 days fluticasone propionate 50 mcg/actuation administer into each nostril 1 spray intranasal Q12H 16 grams 0RF Coding Level of Care Code Est Pt Level 3 (04228) Diagnoses Acute non-recurrent sinusitis, unspecified location J01.90 Sinusitis location: unspecified location Chronicity: acute Recurrence: non-recurrent
[2025-03-11 12:12] VITALS: BP 132/66; PULSE 88; TEMP 37.2; O2SAT 100; BMI 26.2
== END 2025-03-11 13:09 | disposition home or self-care (01) ==
PROVIDERS: PCP Physician Assistant; Visit Provider Physician Assistant Medical
DX: J01.90 Acute sinusitis, unspecified (principal)

== ENCOUNTER 2025-06-03 13:53 | Outpatient (AMB) | payer OTHER, SELFPAY ==
[2025-06-03 14:08] VITALS: BP 120/76; PULSE 113; O2SAT 99; BMI 25.8
--- NOTE | 2025-06-03 14:08 | A.OFFPC_ITS ---
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 Accompanied by: Self / Same As Patient Allergies amoxicillin Adverse Reaction (Verified 06/03/25 14:17) Unknown Penicillins Adverse Reaction (Verified 06/03/25 14:17) Unknown Medication List - Last Reconciled 06/03/25 by Severo Lanier PA-C blood pressure monitor As directed cetirizine-pseudoephedrine 5-120 mg ER 1 tab PO BID 7 days dextroamphetamine-amphetamine 30 mg (Adderall) 30 mg PO DAILY 28 days doxycycline hyclate 100 mg PO BID 7 days escitalopram oxalate 10 mg PO DAILY 90 days fluticasone propionate 50 mcg/actuation 1 spray intranasal Q12H folic acid 1 mg PO DAILY 90 days lisinopril 10 mg PO DAILY loratadine (Allergy Relief (loratadine)) 10 mg PO DAILY 30 days mupirocin 2% 1 appl topical BID 30 days Tobacco use date assessed: 06/03/25 Dental Screening Dental Screen Date: 06/03/25 Did you have a dental visit in the last 12 months?: No Did you have a dental problem in the last 6 months where you did not have access to dental care?: No Was dental information given to patient?: No HPI med f/u HPI Details Patient is a 34-year-old female here today for a follow-up visit. Patient has a past medical history significant for anxiety and ADHD. Concern--> The patient experienced a sinus infection around the 13 of March, which was treated at urgent care. Since then, she has had a persistent dry cough, particularly bothersome at night, which she describes as a tickle cough. She has tried tea and cough drops with limited relief and is considering an inhaler or cough suppressant tablets as potential treatments. ADHD: She reports she was seeing a psychiatrist though has lost her follow-up and would like to regain psychiatry care. She is on Lexapro which has been helpful for her anxiety. She was on Adderall 30 mg for ADHD though apparently has not been on it over the last year and half. 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 She does have a 12-year-old daughter. Tobacco dependency: She does understand she needs to quit smoking though at this time due to her stress it is very difficult for her to stop at this time. She does use cigarette smoking as a means to reduce her stress. /.. Hypertension: Patient's blood pressure acceptable today in office. She is consistent with the use of lisinopril 10 mg. She has been making some dietary and lifestyle modifications to reduce her blood pressure She's also dealing with stress at work, compounded by smoking and caffeine consumption, which might contribute to the blood pressure issue. .. Elevated liver enzymes: Noted elevated liver enzymes on most recent labs. she reports reducing her alcohol intake We did discuss possibly getting an ultrasound of her liver to evaluate for fatty liver versus cirrhosis though patient would like to hold off and work on lifestyle modifications and recheck liver enzymes. .. Impaired glucose metabolism: Most recent fasting blood sugar elevated at 114. She does admit to dietary indiscretion. 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 1. Little interest or pleasure in doing things: not at all 2. Feeling down, depressed, or hopeless: several days 3. Trouble falling or staying asleep, or sleeping too much: several days 4. Feeling tired or having little energy: several days 5. Poor appetite or overeating: several days 6. Feeling bad about yourself - or that you are a failure or have let yourself or your family down: not at all 7. Trouble concentrating on things, such as reading the newspaper or watching television: several days 8. Moving or speaking so slowly that other people could have noticed. Or the opposite - being so fidgety or restless that you have been moving around a lot more than usual: not at all 9. Thoughts that you would be better off or of hurting yourself in some way: not at all Total score: 5 Source: Developed by Drs. Yasir Mancia, Sanam Joyner, Norm Jason and colleagues, with an educational romulo from [employer]. Thrive Questionnaire Date Thrive assessed: 11/27/24 I am a: Patient What is your living situation today?: I have a steady place to live Within the past 12 months, did the food you bought not last and you didn't have the money to get more?: I choose not to answer this question Within the past 12 months, did you worry whether your food would run out before you got money to buy more?: I choose not to answer this question Do you have trouble paying for medicines?: I choose not to answer this question Do you have trouble getting transportation to medical appointments?: No Do you have trouble paying your heating and electricity bill?: I choose not to answer this question Do you have trouble taking care of your child, family member or friend?: No Do you have trouble with day-to-day activities such as bathing, preparing meals, shopping, managing finances, etc.?: No Are you currently unemployed and looking for a job?: No Are you interested in more education?: I choose not to answer this question Please select the resources that you would like help with: None Currently or been in a relationship where the following occur: No concerns reported THRIVE Score: 0 AUDIT C Alcohol Use Questionnaire (AUDIT-C) 1. How often do you have a drink containing alcohol?: 2-3 times a week 2. How many drinks containing alcohol do you have on a typical day when you are drinking?: 1 or 2 3. How often do you have six or more drinks on one occasion?: Less than monthly Total Score: 4 OMAR-7 AMB Questionnaire OMAR-7 Date OMAR - 7 assessed: 11/14/23 Feeling nervous, anxious, or on edge: 1 = Several days Not being able to stop or control worryin = Several days Worrying too much about different things: 1 = Several days Trouble relaxin = Several days Being so restless that it is hard to sit still: 0 = Not at all Becoming easily annoyed or irritable: 1 = Several days Feeling afraid as if something awful might happen: 0 = Not at all Total OMAR-7 score (0-4 normal; 5-9 mild; 10-14 moderate; 15-21 severe): 5 Source: Developed by Drs. Yasir Mancia, Sanam Joyner, Norm Jason and colleagues, with an educational romulo from [employer]. Review of Systems Const Denies headache(s) Eyes Denies loss of vision ENT Denies vertigo, Denies dizziness, Denies headache(s) and Denies sore throat Card Denies chest pain, Denies leg edema and Denies lightheadedness Resp Reports cough and Denies wheezing GI Denies abdominal pain, Denies melena, Denies constipation, Denies diarrhea and Denies vomiting Denies urinary frequency, Denies dysuria and Denies urinary urgency Musc Denies arthralgias, Denies joint swelling, Denies numbness and Denies tingling Neuro Denies Abnormal speech present, Denies behavioral changes, Denies vertigo, Denies dizziness, Denies headache(s), Denies loss of vision, Denies memory loss, Denies numbness and Denies tingling Psych Denies anxiety, Denies behavioral changes, Denies depression, Denies memory loss and Denies panic attacks Rell/Lymph Denies easy bleeding and Denies easy bruising Aller/Immun Denies wheezing Physical exam (Primary Care) Vital Signs: Last Vital Signs Pulse 113 H 06/03/25 14:08 BP 120/76 06/03/25 14:08 Pulse Ox 99 06/03/25 14:08 Oxygen Delivery Method Room Air 06/03/25 14:08 BMI result Body Mass Index 25.8 Tobacco/Smoking Status: Tobacco use Status Tobacco use date assessed 06/03/25 06/03/25 14:14 Patient Tobacco Use Status Current everyday Tobacco 06/03/25 14:14 e-Cigarette/Vaping Use Never Used 06/03/25 14:14 Are you ready to quit: No Tobacco cessation counseling provided: Yes Items discussed: Nicotine replacement Relapse Prevention: discussed the importance of a supportive environment, discussed negative mood or depression after quitting, weight gain after smoking is common and discussed dietary, exercise and/or lifestyle changes Number of minutes spent counselin CPT code: 48991 - 4-10 Minutes PHQ-9: PHQ-9 Score PHQ-9: Total score 5 06/03/25 14:20 Thrive Assessment: Date of Thrive Assessment Date Thrive assessed 11/27/24 06/03/25 14:14 Currently or been in a relationship where the following occur: No concerns reported Const General: healthy appearing, no acute distress, alert and awake Nutritional Appearance: well nourished Orientation/consciousness: oriented to person, oriented to place and oriented to time HENMT Ears: TM's normal bilaterally General nose exam: Normal nasal mucous membranes and turbinates present Eyes Conjunctivae: conjunctivae normal Sclerae: sclerae normal Pupils: Equal, round and reactive pupils present Neck Neck: Yes no lymphadenopathy and Yes no JVD Thyroid: Thyroid normal Carotids: no bruits Resp Effort & Inspection: normal respiratory effort and not tachypneic Auscultation: no crackles, no rales, no rhonchi and no wheezes Cardio Rate: regular rate Rhythm: regular rhythm Heart sounds: no murmurs and normal S1 and S2 GI Palpation (GI): Soft to palpation, nontender, no hepatomegaly and no splenomegaly Auscultation: normal bowel sounds Skin General skin exam: no rashes or lesions noted and dry skin Neuro General: oriented to person, oriented to place and oriented to time Cranial nerves: Yes Equal, round and reactive pupils present Speech: No Abnormal speech present Gait exam (Neuro): Normal gait present Motor exam (neuro): no tremor noted Extrem Right upper extremity: full ROM Left upper extremity: full ROM Right lower extremity: full ROM; no edema Left lower extremity: full ROM; no edema Psych Mental Status: mental status grossly normal Speech and movement: Normal speech and movement present Affect: normal affect Attitude: cooperative Thought process: Normal thought process present Coding Level of Care Code Est Pt Level 4 (03402) Diagnoses Primary hypertension I10 Hypertension type: primary hypertension Attention deficit hyperactivity disorder (ADHD), predominantly inattentive type F90.0 Attention deficit-hyperactivity disorder type: predominantly inattentive Impaired glucose metabolism R73.09 Tobacco dependence F17.200 Chronic cough R05.3 Additional Codes Vital Signs *Quality* - CPT code: 03903 - 4-10 Minutes ([id number]) Assessment & Plan Assessment & Plan (1) HTN (hypertension): Code(s): I10 - Essential (primary) hypertension Category: Medical Qualifiers: Hypertension type: primary hypertension Qualified Code(s): I10 - Essential (primary) hypertension Plan: Patient's blood pressure acceptable today in office, will continue her current dose of lisinopril 10 mg with goal blood pressure to remain below 140/90. (2) ADHD: Code(s): F90.9 - Attention-deficit hyperactivity disorder, unspecified type Category: Medical Qualifiers: Attention deficit-hyperactivity disorder type: predominantly inattentive Qualified Code(s): F90.0 - Attention-deficit hyperactivity disorder, predominantly inattentive type Plan: Patient seems to have been doing well on current dose of stimulant ADHD medication. She continues with a full-time job . She denies any side effects from stimulant ADHD med. Will continue to follow every 3 months to evaluate the effectiveness of the med ication. (3) Impaired glucose metabolism: Code(s): R73.09 - Other abnormal glucose Category: Medical Plan: Patient's most recent fasting blood sugar slightly elevated. She has been trying to work on lifestyle and dietary modifications. Will recheck fasting blood sugar and A1c. (4) Tobacco dependence: Code(s): F17.200 - Nicotine dependence, unspecified, uncomplicated Category: Medical Plan: Patient does understand she needs to quit smoking. She is willing to try nicotine gum (5) Chronic cough: Code(s): R05.3 - Chronic cough Category: Medical Plan: For the persistent cough, an albuterol inhaler will be prescribed to assess its effectiveness, and Tessalon Perles may be considered if needed. The patient is advised to resume allergy medications to manage symptoms of allergic rhinitis, particularly with the seasonal change. Orders: Orders Complete Blood Count no Diff 06/03/25 Z13.1 - Encounter for screening for diabetes mellitus Microalbumin, Random (w Creat) 06/03/25 I10 - Essential (primary) hypertension Hemoglobin A1c 06/03/25 R73.09 - Other abnormal glucose Comprehensive [place]. Panel Fast 06/03/25 Z13.1 - Encounter for screening for diabetes mellitus Vitamin B12 and Folate 06/03/25 E53.8 - Deficiency of other specified B group vitamins Medications: New nicotine (polacrilex) 2 mg buccal Q2H PRN 110 ea 0RF nicotine cravings 15 days F17.200 - Nicotine dependence, unspecified, uncomplicated albuterol sulfate 90 mcg/actuation 1 inh inhalation QID 8.5 grams 1RF 4 weeks R05.3 - Chronic cough benzonatate 200 mg PO BEDTIME 15 caps 0RF 15 days R05.3 - Chronic cough, R05.9 - Cough, unspecified Refilled lisinopril 10 mg PO DAILY 90 tabs 1RF I10 - Essential (primary) hypertension Discontinued doxycycline hyclate Discontinued Reason: Doctor's Order 100 mg PO BID 7 days 14 tabs 0RF
--- OUTSIDE RECORDS SUMMARY | 2025-06-03 16:24 | XMS_ITS | Clinical Summary ---
Author Organization [facility] Address [address] [address] Phone Care Team Providers Care Firer Low Pressure Name Role Phone Unknown, Unknown Primary Care Provider Cuauhtemoc labpradip Allergies Active Allergy Reactions Criticality Noted Date Comments Amoxicillin Rash Low 09/27/2017 Medications loratadine (CLARITIN ORAL)Indications:o ne daily prn Take by mouth. Indications : one daily prn Active albuterol (PROAIR HFA) 90 mcg/actuation inhaler Inhale 2 puffs into the lungs every 6 (six) hours as needed for wheezing. 1 Inhaler 2 8 Active LORazepam (ATIVAN) 0.5 MG tablet Take 1 tablet (0.5 mg total) by mouth 2 (two) times a day as needed for anxiety. 10 tablet 2 Active escitalopram oxalate (LEXAPRO) 10 MG tablet TAKE 1 TABLET(10 MG) BY MOUTH DAILY 30 tablet 2 4 Active dextroamphetamine- amphetamine (ADDERALL) 30 mg Tab tablet Take 1 tablet by mouth every morning. 4 Active norethindrone-ethi nyl estradiol (PANKAJ) 1.5-0.03 mg TabIndications:Ora l contraceptive pill surveillance Take 1 tablet by mouth daily. 84 tablet 3 4 Active Active Problems Problem Noted Date Diagnosed Date High risk human papilloma virus (HPV) infection of cervix 04/11/2024 Overview (04/11/2024): 03/2024: NIL/HPV pos Plan: repeat pap in 1 year Gastroesophageal reflux disease without esophagi tis 10/13/2020 Seasonal allergies 12/09/2019 Acne vulgaris 06/12/2018 Attention deficit disorder (ADD) without hyperac tivity 09/27/2017 Anxiety 09/27/2017 Alcohol abuse 09/27/2017 Depression 09/27/2017 Overweight 09/27/2017 Smoker 09/27/2017 Resolved Problems Problem Noted Date Diagnosed Date Resolved Date IUD threads lost 07/05/2021 04/02/2024 Assessment & Plan (07/05/2021 10:30 AM EDT): We reviewed exam findings with no IUD strings seen/able to be located with pap brush. Advised pelvic u/s to assess, test today as precaution. If IUD is in place, we reviewed option to keep current Mirena for one more year vs. MD appt to remove/replace. Abdominal distension 07/02/2020 Assessment & Plan (07/02/2020 2:54 PM EDT): Impression: Abdominal distention x2 months worse in the morning generally speaking, periumbilical pain associated with a little bit of nausea but no vomiting. Possible gastritis versus antral ulcers versus duodenal ulcers, IBS associated with stress of living at home. Obtain upper GI series with small bowel follow-through then depending on the pathology either CT scan or GI consult. If upper GI series is negative, consider GI consult. For now symptomatic treatment of distention with simethicone 80 mg 4 times daily as needed. For now no elimination diet but we would advise to reduce alcohol intake. 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 01/22/2018 04/02/2024 Immunizations Immunization Administration Dates Next Due COVID-19 (Pre-07/02) Moderna Vaccine, mRNA, PF 0 02/03/2021,01/06/2021 Family History Medical History Relation Comments No Known Problems Daughter CV disease Maternal Grandfather CV disease Maternal Grandmother Lung disease Mother Thyroid disease Mother Relation Status Comments Daughter Alive Father Other Maternal Grandfather Maternal Grandmother Mother Alive Social History Tobacco Use Types Packs/Day Years Used Date Smoking Tobacco: Every Day Cigarettes 0.8 10 Smokeless Tobacco: Never Tobacco Cessation:Ready to Q uit: Not Asked; Counseling Given: Not Answered Comments:0.5-1 ppd Alcohol Use Standard Drinks/Week Comments Yes 12 (1 standard drink = 0.6 oz pu re alcohol) Child or Family Care Answer Date Record ed Do you have problems with on e of the following making it difficult for you to work, study, or receive health care? No 11/17/2021 Education Answer Date Recorded Are you interested in more education? Not on beverly e 11/21/2023 Are you concerned about learning? Not on file 11/21/2023 No 11/21/2023 No 11/21/2023 Food Answer Date Recorded Within the past 6 months we worried whether our food would run out before we got money to buy more. Never True 11/17/2021 Within the past 6 months the food we bought just didn't last and we didn't have enough money to get more. Never True Residential Stability Answer Date Recor ded What is your housing situation today? I have annita sing 11/17/2021 How many times have you move d in the past 12 months? Zero (I did not move) 11/17/2021 Paying for Meds Answer Date Recorded Do you have trouble paying for medicines? No 11/17/2021 Paying Utility Bills Answer Date Record ed Do you have trouble paying y our heating or electricity bill? I choose not to answer 11/17/2021 Transportation Answer Date Recorded Has the lack of transportati on kept you from medical appointments or from getting medications? No 11/17/2021 Unemployment Answer Date Recorded Are you currently unemployed or working on a part-time or temporary basis, and looking for work? No 11/17/2021 Digital Access Answer Date Recorded No 02/05/2023 No 02/05/2023 Reliable internet access at home? Not on file 02/05/2023 Device with a working camera? Not on file Comments No Sex and Gender Information Value Date Recorded Sex Assigned at Not on file Legal Sex Female 9:00 PM EDT Gender Identity Not on file Sexual Orientation Not on file Last Filed Vital Signs Vital Sign Reading Time Taken Comments Blood Pressure 128/90 04/02/2024 8:30 AM EDT Pulse 104 11/17/2021 1:41 PM EST Temperature 36.6 C (97.9 F) 07/02/2020 2:15 PM EDT Respiratory Rate 16 11/17/2021 12:47 PM EST Oxygen Saturation 98% 11/17/2021 12:47 PM EST Inhaled Oxygen Concentration - - Weight 71.7 kg (158 lb) 04/02/2024 8:30 AM EDT Height 165.1 cm (5' 5 ) 04/02/2024 8:30 AM EDT Body Mass Index 26.29 04/02/2024 8:30 AM EDT Plan of Treatment Health Maintenance Due Date Last Done Comments Adult Td,Tdap Booster 1990 SMOKING Hx and SMOKELESS TOBACCO SCREENING 2004 PNEUMOCOCCAL VACCINES (0-49 years) (1 of 2 - PCV) 2010 DEPRESSION SCREENING 11/17/2022 11/17/2021 INFLUENZA VACCINE (#1) 2025 COVID-19 VACCINE (3 - season) 2025 02/03/2021, 01/06/2021 PAP SMEAR 04/02/2027 04/02/2024, 10/11, 10/24/2018, Additional history exists HIV ONE-TIME SCREENING (18-65 YEARS) Completed 11/04/2010 HEPATITIS C SCREENING Completed 10/13/2020, 021 HEPATITIS A VACCINES Aged Out No long er eligible based on patient's age to complete this topic HIB VACCINES Aged Out No longer eligi ble based on patient's age to complete this topic MENINGOCOCCAL VACCINES (ACWY) Aged Out No longer eligible based on patient's age to complete this topic MENINGOCOCCAL VACCINES (B) Aged Out N o longer eligible based on patient's age to complete this topic Medical Devices Not on file Procedures Procedure Name Priority Date/Time Associated Diagnosis Comments PAP TEST Routine 04/02/2024 12:00 AM EDT HEPATITIS C ANTIBODY, QUALITATIVE Routine 10/13/2020 9:42 AM EST Slow transit constipation OUTSIDE HIV Routine 11/04/2010 from Last 3 Months or Most Recently Relevant to Health Maintenance Results * Pap Test (04/02/2024 12:00 AM EDT) 04/02/2024 04/03/2024 9:3 1 AM EDT Narrative SEE NARRATIVE - 04/10/2024 4:21 PM EDT [address] [address] Junior Web Developer: Cristina Roblero MD SUPERVISOR GEAR REPAIR Cytology Report FINAL DIAGNOSIS A. PAP SMEAR (THIN PREP) CE: SPECIMEN ADEQUACY: Satisfactory for evaluation; transformation zone absent/insufficient. INTERPRETATION: NEGATIVE FOR INTRAEPITHELIAL LESION OR MALIGNANCY. Parakeratosis This specimen was analyzed by the automated ThinPrep Imaging System ([employer] and manually rescreened by a middle school counselor and/or pathologist. Electronically Signed Out By: MD Nidia Lozano CT(ASCP) By his/her signature above, the pathologist listed as making the Final Diagnosis certifies that he/she has personally reviewed this case and confirmed or corrected the diagnosis. The Pap test is a screening test primarily for squamous cancers and precursors and has associated false-negative and false-positive results. New technologies such as liquid-based preparations may decrease but will not eliminate all false-negative results. Regular sampling and follow-up of unexplained clinical signs and symptoms are recommended to minimize false negative results. PROCEDURES/ADDENDA HPV Testing (Requested) Ordered Date: 04/03/2024 A. PAP SMEAR (THIN PREP) CE: Human Papilloma Virus TEST POSITIVE for high-risk Human Papilloma Virus type Other high risk (non-type 16, 18, or 45) probe set (Includes 31, 33, 35, 39, 51, 52, 56, 58, 59, 66, 68) Note: Additional testing was necessary to identify the most virulent high-risk strains. Negative for high-risk Human Papilloma Virus types 16, 18 and 45. Testing performed by [employer] HR-HPV analysis. Clinical correlation is advised. This HPV test was performed at [facility], [address] [place] [address]. This test has been FDA approved for both SurePath and ThinPrep cervical cytology specimens. The accuracy and precision of this test for all other specimen sources has been verified in the Cytopathology Laboratory of the [facility] and has not been cleared or approved by the U.S. Food and Drug Administration. Clinical correlation is advised. CLINICAL HISTORY Date of Last Menstrual Period: 03-19-2024 Contraceptive History: OCPs Infection History: HPV: 2023 Other Clinical Conditions: Screening Pap SPECIMEN SOURCE A: PAP SMEAR (THIN PREP) CE Patient Name: JORGE A GOVEA. : 1990 (Age: 33) Sex: F Institution: [facility] Location: [facility] Date of Collection: 04/02/2024 Date of Reported: 04/10/2024 16:21 Results to: Natty Sierra MD us Natty Sierra MD CYTOLOGY ORDERABLES Final Res ult SEE NARRATIVE * Hepatitis C antibody, qualitative (10/13/2020 9:42 AM EST) HCV NON-REACTIV E NON-REACTI VE [facility] Blood 10/13/2020 9:42 AM EST 10/13/2020 9:48 AM EST us Arleth Ricardo NP LAB BLOOD ORDERABLES Final Resu lt [facility] [address] [place] [address] * OUTSIDE HIV TEST (11/04/2010) HIV - External Neg us Historical Provider LAB BLOOD ORDERABLES Reina l Result from Last 3 Months or Most Recently Relevant to Health Maintenance Insurance AETNA PPO AETNA PPO 1 [place] [id number] AETNA PPO 1 [place] [id number] AETNA PPO AETNA PPO AETNA PPO 1 [place] [address] [address] [place] [address] Care Teams Firer Low Pressure Relationship Specialty Start Date End Date Unknown, Unknown, MD PCP - General 11/21/23 Additional Source Comments The information contained in this document represents components of the legal health record. It is not the complete legal health record.[facility]
--- OUTSIDE RECORDS SUMMARY | 2025-06-03 16:24 | XMS_ITS ---
Author Name [facility] Organization Unknown Care Team Organization Name Specialty Phone Email Start Date End Da te [facility] NULL Primary Care 06/13/2023 04/28/2024
--- OUTSIDE RECORDS SUMMARY | 2025-06-03 16:24 | XMS_ITS | Encounter Summary ---
Author Organization [facility] Address [address] [facility] [address] [place] [address] Phone Care Team Providers Care Assistant Name Role Phone Donnie Cook MD Primary Care Provider [phone] Arleth Ricardo NP Primary Care Provider [phone] Mark Yanez MD Unavailable Unknown, Unknown Primary Care Provider Cuauhtemoc west Encounter Details Date Type Department Care Team (Late st Contact Info) Description 09/27/2017 Transcribe Orders [facility] Specimen Processing [address] [place] [address] Arleth Ricardo, RESIDENT CAREGIVER [address] [facility] [address] [place] [address] [email or web address] Attention deficit disorder of childhood (Primary Dx) Social History Tobacco Use Types Packs/Day Years Used Date Smoking Tobacco: Every Day Cigarettes 0.5 10 Smokeless Tobacco: Never Alcohol Use Standard Drinks/Week Comments Yes 12 (1 standard drink = 0.6 oz pu re alcohol) Comments Unknown Sex and Gender Information Value Date Recorded Sex Assigned at Not on file Legal Sex Female 9:00 PM EDT Gender Identity Not on file Sexual Orientation Not on file documented as of this encounter Plan of Treatment Not on file documented as of this encounter Results * (ABNORMAL) Toxicology screen, urine (09/27/2017 7:48 PM EST) URINE CANNABINOIDS Positive(A) NONE DETECTED [facility] Comment:Cutoff: 50 ng/mL URINE COCAINE METAB NONE DETECTED NONE DETECTED [facility] Comment:Cutoff: 300 ng/mL URINE AMPHETAMINES Positive(A) NONE DETECTED [facility] Comment:Cutoff: 1000 ng/mL URINE METHADONE NONE DETECTED NONE DETECTED [facility] Comment:Cutoff: 300 ng/mL URINE OPIATES NONE DETECTED NONE DETECTED [facility] Comment:Cutoff: 300 ng/mL URINE PHENCYCLIDINE NONE DETECTED NONE DETECTED [facility] Comment:Cutoff: 25 ng/mL URINE OXYCODONE NONE DETECTED NONE DETECTED [facility] Comment:Cutoff: 300 ng/ml URINE BARBITURATES NONE DETECTED NONE DETECTED [facility] Comment:Cutoff: 200 ng/mL URINE BENZODIAZEPINE NONE DETECTED NONE DETECTED [facility] Comment: Cutoff: 200 ng/mL INTERPRETATION FOR TOXICOLOGY PANEL: These results are unconfirmed and should be used for Medical Treatment purposes only. Urine (Urine) 09/27/2017 7:4 8 PM EST 09/27/2017 7:56 PM EST Arleth Ricardo NP URINE ORDERABLES Final Result Performing Organization Address City/State/[facility] Co de Phone Number [facility] [address] [place] [address] documented in this encounter Visit Diagnoses Diagnosis Attention deficit disorder of childhood- Primary Attention deficit disorder without mention of hyperactivity documented in this encounter Additional Health Concerns Assessment Noted Time PHQ-2 Depression Total Score: 0 09/27/19 18 3:02 PM EST documented as of this encounter Care Teams Assistant Relationship Specialty Start Date End Date Donnie Cook MD [address] [place] [address] [email or web address] PCP - General Internal Medicine 07/06/17 05/13/18 Arleth Ricardo NP [address] [place] [address] PCP - General Family Medicine 05/14/18 11/20/23 Unknown, Estrella, MD PCP - General 11/21/23 Mark Yanez MD [address] [place] [id number] [email or web address] Insurance Assigned Provider 10/16/20 10/14/22 documented as of this encounter Additional Source Comments The information contained in this document represents components of the legal health record. It is not the complete legal health record.[facility]
== END 2025-06-03 14:36 | disposition home or self-care (01) ==
LOC: HO.HMCH 13:54
PROVIDERS: PCP Physician Assistant; Visit Provider Physician Assistant
DX: I10 Essential (primary) hypertension (principal); F90.0 Attention-deficit hyperactivity disorder, predominantly inattentive type; R73.09 Other abnormal glucose; F17.200 Nicotine dependence, unspecified, uncomplicated; R05.3 Chronic cough

== ENCOUNTER 2025-09-08 12:07 | Outpatient (REF) | payer OTHER, SELFPAY ==
[2025-09-08 13:57] LABS: Hematocrit 45.0 % (37.0-47.0); Hemoglobin 15.7 g/dl (12.0-16.0); Mean Corpuscular HGB Conc 34.9 g/dl (31.0-35.0); Mean Corpuscular Hemoglobin 34.1 pg (27.0-33.0); Mean Corpuscular Volume 97.8 fL (80.0-98.0); NRBC Abs Auto 0.000 X10*3/uL (0.0-0.012); NRBC Pct Auto 0.0 /100WBC (0.0-0.2); Platelet Count 345 X10*3/uL (160-400); Red Blood Count 4.60 X10*6/uL (4.20-5.50); White Blood Count 7.7 X10*3/uL (4.8-10.8)
[2025-09-08 14:46] LABS: Alanine Aminotransferase 78 U/L (0-31); Albumin Level 4.6 g/dL (3.5-5.0); Alkaline Phosphatase 70 U/L (39-117); Anion Gap 15 (12-20); Aspartate Amino Transferase 104 U/L (5-31); Blood Urea Nitrogen 6 mg/dL (9-16); Calcium 9.5 mg/dL (8.4-10.2); Carbon Dioxide 25 mmol/L (22-29); Chloride 100 mmol/L (96-108); Estimated Glomerular Filt Rate > 60; Potassium 3.4 mmol/L (3.3-5.1); Sodium 137 mmol/L (135-145); Total Protein 7.6 g/dL (6.5-8.0)
[2025-09-08 15:09] LABS: Microalbum/Creatinine Ratio Ur 47.4 ug/mg cr (<30)
[2025-09-08 15:12] LABS: Folate 2.3 ng/mL (> or = 4.0); Vitamin B12 237 pg/mL (200-900)
--- OUTSIDE RECORDS SUMMARY | 2025-09-08 16:09 | XMS_ITS | Clinical Summary ---
Author Organization [facility] Address [address] [facility] [address] [place] [address] Phone Care Team Providers Care Mill Worker Name Role Phone Unknown, Unknown Primary Care Provider Cuauhtemoc west Allergies Active Allergy Reactions Criticality Noted Date Comments Amoxicillin Rash Low 09/27/2017 Medications loratadine (CLARITIN ORAL)Indications:o ne daily prn Take by mouth. Indication s: one daily prn Active albuterol (PROAIR HFA) [...] 1 tablet by mouth daily. 84 tablet 5 Active PANKAJ 1.5-30 mg-mcg TabIndications:Ora l contraceptive pill surveillance TAKE 1 TABLET BY MOUTH DAILY 84 tablet 5 08/28/20 25 Discontinu ed(Reorder ) Active Problems Problem Noted Date Diagnosed Date [...] MD appt to remove/replace. Abdominal distension 07/02/2020 024 Assessment & Plan (07/02/2020 2:54 PM EDT): [...] production of both lacrimal glands 01/22/2018 04/02/2024 Encounters Date Type Department Care Team Description 08/28/2025 Telephone [facility] [address] [place] [address] [place] [address] Natty Sierra MD Forms & Paperwork 07/14/2025 Refill [facility] [address] [place] [address] [place] [address] Natty Sierra MD Medication Refill 06/12/2025 Refill [facility] [address] [place], [place] [address] Natty Sierra MD Medication Refill from Last 3 Months Immunizations Immunization Administration Dates Next Due COVID-19 [...] 04/02/2024 8:30 AM EDT Plan of Treatment Upcoming Encounters Date Type Department Care Team (Late st Contact Info) Description 12/04/2025 2:10 PM EDT Office Visit [facility] [address] [place] [address] [place] [address] Natty Sierra MD [address] [place] [address], [address] [place] [address] [email or web address] Health Maintenance Due Date Last Done Comments Adult Td,Tdap Booster 1990 SMOKING Hx and SMOKELESS TOBACCO SCREENING 2004 PNEUMOCOCCAL VACCINES (0-49 years) (1 of 2 - PCV) 2010 DEPRESSION SCREENING 11/17/2022 11/17/2021 INFLUENZA VACCINE (#1) 2025 COVID-19 VACCINE ( - season) 2025 02/03/2021, 01/06/2021 PAP SMEAR [...] * Pap Test (04/02/2024 12:00 AM EDT) Report [address] [address] [employer] Nursing Director: Cristina Roblero MD BUTTER FAT TESTER Cytology Report FINAL DIAGNOSIS A. PAP SMEAR (THIN PREP) CE: SPECIMEN ADEQUACY: Satisfactory for evaluation; transformation zone absent/insufficient . INTERPRETATION: NEGATIVE FOR INTRAEPITHELIAL LESION OR MALIGNANCY. Parakeratosis This specimen was analyzed by the automated ThinPrep Imaging System ([employer].) and manually rescreened by a wind turbine design engineer and/or pathologist. Electronically Signed Out By: MD [...] 16, 18 and 45. Testing performed by [employer] HR-HPV analysis. Clinical correlation is advised. This HPV test was performed at [facility], [address] [place] [address]. This test has been FDA approved for both SurePath and ThinPrep cervical cytology specimens. The accuracy and precision of this test for all other specimen sources has been verified in the Cytopathology Laboratory of the [facility] and has not been cleared or approved by the U.S. Food and Drug Administration. Clinical correlation is advised. CLINICAL HISTORY Date of Last Menstrual Period: 03-19-2024 Contraceptive History: OCPs Infection History: HPV: 2023 Other Clinical Conditions: Screening Pap SPECIMEN SOURCE A: PAP SMEAR (THIN PREP) CE Patient Name: JORGE A GOVEA : 1990 (Age: 33) Sex: F Institution: [facility] Location: [facility] Date of Collection: 04/02/2024 Date of Reported: 04/10/2024 16:21 Results to: Natty Sierra MD [facility] Final Diagnosis A. PAP SMEAR (THIN PREP) CE: SPECIMEN ADEQUACY: Satisfactory for evaluation; transformation zone absent/insufficient . INTERPRETATION: NEGATIVE FOR INTRAEPITHELIAL LESION OR MALIGNANCY. Parakeratosis This specimen was analyzed by the automated ThinPrep Imaging System ([employer] and manually rescreened by a wind turbine design engineer and/or pathologist. [facility] Results\Inte rpretation A. PAP SMEAR (THIN PREP) CE: Human Papilloma Virus TESTPOSITIVE for high-risk Human Papilloma Virus type Other high risk (non-type 16, 18, or 45) probe set (Includes 31, 33, 35, 39, 51, 52, 56, 58, 59, 66, 68) Note: Additional testing was necessary to identify the most virulent high-risk strains.Negative for high-risk Human Papilloma Virus types 16, 18 and 45.Testing performed by [employer] HR-HPV analysis. Clinical correlation is advised. This HPV test was performed at [facility], [address] [place] [address]. This test has been FDA approved for both SurePath and ThinPrep cervical cytology specimens. The accuracy and precision of this test for all other specimen sources has been verified in the Cytopathology Laboratory of the [facility] and has not been cleared or approved by the U.S. Food and Drug Administration. Clinical correlation is advised. [facility] Conversion Type (Conversion Source) 04/02/2024 04/03/2024 9:31 AM EDT us Natty Sierra MD CYTOLOGY ORDERABLES Edited Re sult - Final [address] [address] * Hepatitis C antibody, qualitative (10/13/2020 9:42 AM EST) HCV NON-REACTIV E NON-REACTI VE [facility] Blood 10/13/2020 9:42 AM EST 10/13/2020 9:48 AM EST us Arleth Ricardo NP LAB BLOOD BKR ORDERABLES Final Result Performing Organization Address City/[facility]/ZIP Co de Phone Number [address] [address] * OUTSIDE HIV TEST (11/04/2010) HIV - External Neg us Historical Provider LAB BLOOD ORDERABLES Reina l Result from Last 3 Months or Most Recently Relevant to Health Maintenance Insurance [place] [id number] AETNA PPO [place] AETNA PPO [place] [address] AETNA PPO AETNA PPO AETNA PPO Care Teams Mill Worker Relationship Specialty Start Date End Date Unknown, Unknown, PCP - General 11/21/23 Additional Source Comments The information contained in this document represents components of the legal health record. It is not the complete legal health record.[facility]
--- OUTSIDE RECORDS SUMMARY | 2025-09-08 16:09 | XMS_ITS | Encounter Summary ---
Author Organization [facility] Address [address] [address] [place] [phone] Phone Care Team Providers Care Instructor Looping Name Role Phone Donnie Cook MD Primary Care Provider [phone] Arleth Ricardo NP Primary Care Provider [phone] Mark Yanez MD Unavailable Unknown, Unknown Primary Care Provider [place] Encounter Details Date Type Department Care Team (Late st Contact Info) Description 09/27/2017 Transcribe Orders [facility] Specimen Processing [address] [place] [address] Arleth Ricardo, [employer] WORKER [address] [address] [email or web address] Attention deficit disorder of childhood (Primary Dx) [...] as of this encounter Plan of Treatment Upcoming Encounters Date Type Department Care Team (Late Contact Info) Description 12/04/2025 2:10 PM EDT Office Visit [facility] [address] [place] [address] Natty Sierra MD [address] [facility] [address] [place] [address] documented as of this encounter Results * (ABNORMAL) Toxicology screen, urine (09/27/2017 7:48 PM EST) URINE CANNABINOIDS Positive(A) NONE DETECTED [facility] Comment:Cutoff: 50 ng/mL URINE COCAINE METAB NONE DETECTED NONE DETECTED [facility] Comment:Cutoff: 300 ng/mL URINE AMPHETAMINES Positive(A) NONE DETECTED [facility] Comment:Cutoff: 1000 ng/mL URINE METHADONE NONE DETECTED NONE DETECTED [facility] Comment:Cutoff: 300 ng/mL URINE OPIATES NONE DETECTED NONE DETECTED [facility] Comment:Cutoff: 300 ng/mL URINE PHENCYCLIDINE NONE DETECTED NONE DETECTED [facility] Comment:Cutoff: 25 ng/mL URINE OXYCODONE NONE DETECTED NONE DETECTED [facility] Comment:Cutoff: 300 ng/ml URINE BARBITURATES NONE DETECTED NONE DETECTED [facility] Comment:Cutoff: 200 ng/mL URINE BENZODIAZEPINE NONE DETECTED NONE DETECTED [facility] Comment: Cutoff: 200 ng/mL INTERPRETATION FOR TOXICOLOGY PANEL: These results are unconfirmed and should be used for Medical Treatment purposes only. Urine (Urine) 09/27/2017 7:4 8 PM EST 09/27/2017 7:56 PM EST us Arleth Ricardo NP LAB URINE ORDERABLES Final Resu lt [facility] [address] [place] [address] documented in this encounter Visit Diagnoses Diagnosis Attention deficit disorder of childhood- Primary Attention deficit disorder without mention of hyperactivity documented in this encounter Additional Health Concerns Assessment Noted Time PHQ-2 Depression Total Score: 0 09/27/19 18 3:02 PM EST documented as of this encounter Care Teams Instructor Looping Relationship Specialty Start Date End Date Donnie Cook MD [address] [place] [address] PCP - General Internal Medicine 07/06/17 05/13/18 Arleth Ricardo NP [address] [place] [address] [email or web address] PCP - General Family Medicine 05/14/18 11/20/23 Unknown, Estrella, MD PCP - General 11/21/23 Mark Yanez MD [address] [place] [address] [email or web address] Insurance Assigned Provider 10/16/20 10/14/22 documented as of this encounter Additional Source Comments The information contained in this document represents components of the legal health record. It is not the complete legal health record.[facility]
== END 2025-09-08 12:08 | disposition home or self-care (01) ==
LOC: HO.HMGCLDS 12:07
PROVIDERS: PCP Physician Assistant; Visit Provider Physician Assistant
DX: Z13.1 Encounter for screening for diabetes mellitus (principal); I10 Essential (primary) hypertension; E53.8 Deficiency of other specified B group vitamins; R73.09 Other abnormal glucose
CPT/HCPCS: 36415; 80053; 82043; 82570; 82607; 82746; 83036; 85027